=== PATIENT | male | born 1930 | race African-American/Black ===

== ENCOUNTER 2018-01-10 12:13 | Day surgery (SDC) | payer MEDICARE, OTHER ==
[~2018-01-10] VITALS: Ht 172.7 cm; Wt 63.6 kg
--- NOTE | ~2018-01-10 | OP ---
PATIENT NAME: VICKIE RIDER MEDICAL RECORD: [id number] :32 LOCATION:[facility] ADMISSION DATE: SURGEON: KESHA MEJIA DO DATE OF OPERATION: 01/10/2018 PROCEDURE: EGD with balloon dilation less than 30 mm. INDICATIONS FOR PROCEDURE: Dysphagia and heartburn. SCOPE: Olympus video gastroscope. MEDICATIONS: Propofol 50 mg IV per anesthesia. ESTIMATED BLOOD LOSS: None. COMPLICATIONS: None. FINDINGS: Informed consent was given. The patient was made comfortable with the above medication. After reaching an adequate level of sedation by slow IV push, the patient was placed on his left side. The endoscope was advanced under direct visualization through the mouth to the second portion of the duodenum. The upper, middle, and lower thirds of the esophagus appeared normal. At the GE junction, there was a Schatzki's ring just proximal to a hiatal hernia. The ring itself measured approximately 14 mm in diameter. Using a CRE balloon through the working channel of the endoscope, the ring was dilated up to 18 mm diameter successfully. The endoscope was advanced beyond the GE junction into the stomach and retroflexed to view the cardia, where a [id number] size hiatal hernia was present. The hernia itself was about 5 cm in length and was a sliding type hernia. Outside of these findings, the mucosa within the stomach and small intestine appeared normal. No biopsies were taken on today's examination as the patient has been on NSAIDs up through today. The endoscope was withdrawn from the patient. The patient tolerated the procedure well and there were no complications. IMPRESSION: 1. Schatzki ring located at the gastroesophageal junction, dilated to 18 mm. 2. Moderate to large size hiatal hernia. PLAN AND RECOMMENDATIONS: 1. Discharge home when recovery parameters are met. 2. Continue current medications. 3. Continue current diet. 4. Reflux precautions. 5. Can consider surgical referral for hiatal hernia repair if symptoms cannot be controlled with medications alone. 6. Repeat EGD as needed for dysphagia. TRANSINT:[id number] Voice Confirmation ID: [id number] DOCUMENT ID: [id number] OPERATIVE REPORT [id number] VICKIE RIDER KESHA MEJIA DO at [id number] CC: [id number] DICTATION DATE: 01/10/18 1446 SECURITY RESEARCHER: 01/10/18 1548 DEP SDC 01/10/18 [facility] [address] [place] [address]
[2018-01-10] MEDS ORDERED: MOBIC7.5 MG PO (12:48)
[2018-01-10] MEDS ORDERED: VITAMIN B-122500 MCG PO (12:48)
[2018-01-10] MEDS ORDERED: MULTIPLE VITAMI1 TA1 PO (12:48)
[2018-01-10] MEDS ORDERED: HYZAAR 100-25 T1 TAB PO (12:48)
[2018-01-10] MEDS ORDERED: OMEPRAZOLE20 M1 PO (12:48)
[2018-01-10 12:54] VITALS: BP 142/74; Ht 172.7 cm; Wt 63.6 kg
[2018-01-10 13:03] LABS: ANION GAP 11.2 mmol/L (8-16); CARBON DIOXIDE 30.1 mmol/L (21.0-32.0); CREATININE - SERUM 1.6 mg/dL (0.6-1.3); POTASSIUM - SERUM 4.3 mmol/L (3.5-5.1)
[2018-01-10 13:11] LABS: BASOPHILS 0.3 % (0-2); EOSINOPHILS 3.1 % (0-7); HEMATOCRIT 35.1 % (42.0-54.0); HEMOGLOBIN 11.5 g/dL (13.5-17.5); IMMATURE GRANULOCYTES 0.2 % (0-5); MCH 33.3 pg (26.0-34.0); MCHC 32.8 g/dL (31.0-37.0); MCV 101.7 fL (80.0-100.0); MONOCYTES 8.3 % (2-11); NEUTROPHILS 59.1 % (40-80); PLATELET COUNT 238 10x3/uL (130-400); RBC 3.45 10x6/uL (4.20-6.10); RDW 12.8 % (11.5-14.5); WBC 5.9 10x3/uL (4.8-10.8)
== END 2018-01-10 15:40 | disposition home or self-care (01) ==
LOC: D.OPS 12:13
PROVIDERS: Anesthesiology
DX: R13.10 Dysphagia, unspecified (principal); K44.9 Diaphragmatic hernia without obstruction or gangrene; K22.2 Esophageal obstruction; I10 Essential (primary) hypertension; Z01.812 Encounter for preprocedural laboratory examination